=== PATIENT | male | born 1995 | race Caucasian/White ===

== ENCOUNTER 2020-04-28 06:27 | Emergency (ER) | payer BC ==
--- NOTE | 2020-04-28 07:21 | EDM.PDOC ---
ED HPI GENERAL MEDICAL PROBLEM - General Chief Complaint: Skin Complaint Stated Complaint: RT LEG POSSIBLE INFECTION Time Seen by Provider: 04/28/20 07:10 - History of Present Illness INITIAL COMMENTS - FREE TEXT/NARRATIVE: Patient presents with a painful draining bump on his right inner thigh. Patient reports that he noted a "zit" in that area 3 days ago he popped it and then over the last 48 hours has noted worsening pain and swelling and then today he felt catch when he was putting on his boxers and it started to drain pus. No fevers no chills moderate pain that worsens with direct pressure. sore to R posterior thigh Pain Score (Numeric/FACES): 3 - Related Data Allergies Allergy/AdvReac Type Severity Reaction Status Date / Time No Known Allergies Allergy Verified 04/28/20 07:04 Home Meds: Home Meds Ibuprofen [Motrin] 400 mg PO Q8H PRN 04/13/15 [History] Sulfamethoxazole/Trimethoprim [Bactrim Ds Tablet] 1 each PO BID 7 Days #14 tablet 04/28/20 [Rx] cephALEXin [Keflex] 500 mg PO Q6HR 7 Days #28 cap 04/28/20 [Rx] Past Medical History - Past Health History Medical/Surgical History: Denies Medical/Surgical History Other Immunologic History: [place] - Infectious Disease History Infectious Disease History: Reports: Mononucleosis Social & Family History - Family History Family Medical History: Noncontributory - Tobacco Use Tobacco Use Status *Q: Never Tobacco User - Caffeine Use Caffeine Use: Reports: Soda - Recreational Drug Use Recreational Drug Use: No ED ROS GENERAL - Review of Systems Review Of Systems: See Below Free Text/Narrative/Comment: General: No fever. Skin: Per HPI Respiratory: No shortness of breath. Gastrointestinal: No nausea, vomiting or abdominal pain. Musculoskeletal: No myalgias/arthralgias. Neurologic: No headache. ED EXAM, SKIN/RASH Exam: See Below Text/Narrative:: General Appearance: No acute distress, appears comfortable Skin: 2 cm area of induration with overlying and surrounding erythema measuring approximately 4 cm at the center of the lesion there is a spontaneously draining abscess with some purulent drainage HEENT: Normocephalic/atraumatic, sclera anicteric, mucous membranes moist Neck: Normal range of motion Back: Normal Musculoskeletal: No edema or tenderness Neurologic: Awake, alert, no obvious deficits, moving all extremities Psychiatric: Appropriate, cooperative Course - Vital Signs Last Recorded V/S: Last Vital Signs Temp 99.8 F 04/28/20 07:01 Pulse 96 04/28/20 07:01 Resp 16 04/28/20 07:01 BP 134/74 04/28/20 07:01 Pulse Ox 95 04/28/20 07:01 Departure - Departure Time of Disposition: 07:17 Disposition: Home, Self-Care 01 Condition: Good Clinical Impression: Cellulitis and abscess of right lower extremity - Discharge Information *PRESCRIPTION DRUG MONITORING PROGRAM REVIEWED*: Not Applicable *COPY OF PRESCRIPTION DRUG MONITORING REPORT IN PATIENT ASTRID: Not Applicable Prescriptions: Sulfamethoxazole/Trimethoprim [Bactrim Ds Tablet] 1 each PO BID 7 Days #14 tablet cephALEXin [Keflex] 500 mg PO Q6HR 7 Days #28 cap Instructions: Cellulitis, Adult Referrals: [facility] [Outside] Forms: ED Department Discharge Additional Instructions: The abscess area will likely continue to drain for the next few days. However you should experience a rapid improvement in the redness and the pain. Please be sure to finish the entire antibiotic course. If you have worsening swelling worsening pain spreading redness or fevers please return to the emergency room right away. The following information is given to patients seen in the emergency department who are being discharged to home. This information is to outline your options fo r follow-up care. We provide all patients seen in our emergency department with a follow-up referral. The need for follow-up, as well as the timing and circumstances, are variable depending upon the specifics of your emergency department visit. If you don't have a primary care physician on staff, we will provide you with a referral. We always advise you to contact your personal physician following an emergency department visit to inform them of the circumstance of the visit and for follow-up with them and/or the need for any referrals to a consulting specialist. The emergency department will also refer you to a specialist when appropriate. This referral assures that you have the opportunity for follow-up care with a specialist. All of these measure are taken in an effort to provide you with optimal care, which includes your follow-up. Under all circumstances we always encourage you to contact your private physician who remains a resource for coordinating your care. When calling for follow-up care, please make the office aware that this follow-up is from your recent emergency room visit. If for any reason you are refused follow-up, please contact the [facility] Emergency Department at and asked to speak to the emergency department charge nurse. Sepsis Event Note (ED) - Evaluation Sepsis Screening Result: No Definite Risk - Focused Exam Vital Signs: Vital Signs Temp Pulse Resp BP Pulse Ox 04/28/20 07:01 99.8 F 96 16 134/74 95 - Assessment/Plan Assessment:: 25-year-old male with no signs or symptoms of systemic infection presenting with small area of cellulitis associated with a spontaneously draining abscess. Abscess is clearly spontaneously draining given that formal I&D not indicated at this time but given significant overlying erythema consistent with cellulitis will prescribe 1 week of Bactrim Keflex. Strict return precautions discussed and understood regarding returning for worsening pain worsening swelling fevers etc.
[2020-04-28 07:47] VITALS: BP 136/70; PULSE 95
== END 2020-04-28 07:35 | disposition home or self-care (01) ==
LOC: MW.ED 06:27
DX: L03.115 Cellulitis of right lower limb (principal); L02.415 Cutaneous abscess of right lower limb
CPT/HCPCS: 99282

== ENCOUNTER 2020-08-17 10:43 | Emergency (ER) | payer BC ==
[2020-08-17] MEDS ORDERED: Sodium Chloride 0.9% 1,000 ML IV ONE (11:38)
[2020-08-17] MEDS ORDERED: cefTRIAXone 1 GM in Premix Bag 1 BAG IV ONE (11:42)
[2020-08-17] MEDS ORDERED: Vancomycin 2 GM in Sodium Chloride 0.9% 500 ML IV SCH (12:00)
[2020-08-17] MEDS ORDERED: Vancomycin/Water for INJ (PEG) 2 GM in Premix Bag 1 BAG IV SCH (12:00)
[2020-08-17 12:05] LABS: BLOOD UREA NITROGEN,BUN 15 mg/dL (7.0-18.0); CHLORIDE,CL 104 mmol/L (98-107); GLUCOSE RANDOM 81 mg/dL (74-106); POTASSIUM,K 3.5 mmol/L (3.5-5.1); SODIUM,NA 142 mmol/L (136-148)
[2020-08-17] MEDS ORDERED: Iopamidol 755 MG/ML 500 ML Multipack Bottle IVPUSH ONE (12:35)
--- NOTE | 2020-08-17 12:58 | CT ---
INDICATION: Suprapubic infection, abscess, or cellulitis. TECHNIQUE: CT abdomen and pelvis acquired with 100 cc Isovue 370 IV contrast. COMPARISON: None. FINDINGS: Lower chest: Unremarkable. Liver: Unremarkable. Normal in size and attenuation. No masses. Gallbladder and bile ducts: Unremarkable. No stones or inflammation. No biliary dilatation. Pancreas: Unremarkable. No mass or inflammation. Spleen: Unremarkable. Normal in size. No masses. Adrenal glands: Unremarkable. No nodules. Kidneys: Unremarkable. No masses, stones, or hydronephrosis. GI tract: Unremarkable. Normal in caliber. No sign of mass or inflammation. Normal appendix. Vasculature: Unremarkable. Mesenteric arteries are patent. Lymph nodes: No lymphadenopathy. Omentum/Peritoneum/Abdominal Wall: In the superficial anterior soft tissues of the pelvis is skin thickening and subcutaneous edema consistent with cellulitis. No fluid collection to suggest abscess. No intra-abdominal inflammation, fluid collection or free air. Pelvis: Unremarkable. Bones: Unremarkable for age. IMPRESSION: Cellulitis is present in the anterior pelvic wall. No abscess. Remainder of the exam is unremarkable. Please note that all CT scans at this facility use dose modulation, iterative reconstruction, and/or weight-based dosing when appropriate to reduce radiation dose to as low as reasonably achievable. Dictated by Ryan Boyce MD @ Aug 17 2020 12:49PM Signed by Dr. Ryan Boyce @ Aug 17 2020 12:55PM
[2020-08-17] MEDS ORDERED: diphenhydrAMINE 50 MG/ML SDV IVPUSH ONE (13:32)
--- NOTE | 2020-08-17 14:09 | EDM.PDOC ---
ED HPI GENERAL MEDICAL PROBLEM - General Chief Complaint: Skin Complaint Stated Complaint: INFECTION Time Seen by Provider: 08/17/20 10:45 Source of Information: Reports: Patient History Limitations: Reports: No Limitations - History of Present Illness INITIAL COMMENTS - FREE TEXT/NARRATIVE: HISTORY AND PHYSICAL: History of present illness: Patient is a 25-year-old male who presents emergency room today with concern of a skin infection that started 2 to 3 days ago. Patient states that it started off as a "pimple "and states that he had popped it and then has had increasing redness and pain surrounding the area that he had popped. Patient states that he has had this prior on his leg but states that this is more painful due to the location. Patient states this is on his lower abdomen, just superior to his penis but states that it does not radiate into his penis or his testicles. Patient denies any trauma or injury, penile drainage, scrotal tenderness, or testicular pain. States he has not taken anything for his symptoms. Patient denies fever, chills, chest pain, shortness of breath, or cough. Denies headache, neck stiff ness, change in vision, syncope, or near syncope. Denies nausea, vomiting, abdominal pain, diarrhea, constipation, or dysuria. Has not noted any blood in urine or stool. Patient has been eating and drinking appropriately. Review of systems: As per history of present illness and below otherwise all systems reviewed and negative. Past medical history: As per history of present illness and as reviewed below otherwise noncontributory. Surgical history: As per history of present illness and as reviewed below otherwise noncontributory. Social history: See social history for further information Family history: As per history of present illness and as reviewed below otherwise noncontributory. Physical exam: General: Patient is alert, oriented, and in no acute distress. Patient sitting comfortably on exam table. Vitals stable and reviewed by me HEENT: Atraumatic, normocephalic, pupils equal and reactive bilaterally, negative for conjunctival pallor or scleral icterus, mucous membranes moist, TMs normal bilaterally, throat clear, neck supple, nontender, trachea midline. No drooling or trismus noted. No meningeal signs. No hot potato voice noted. Lungs: Clear to auscultation, breath sounds equal bilaterally, chest nontender. Heart: S1S2, regular rate and rhythm without overt murmur Abdomen: See genitourinary. Otherise, Soft, nondistended, nontender. Negative for masses or hepatosplenomegaly. Negative for costovertebral tenderness. Pelvis: Stable nontender. Genitourinary: Drug And Alcohol Counselor at beside MICHAEL Feliz/Anais Salcedo. There is a 5 cm x 4 cm area of induration without fluctuance with surrounding cellulitis just superior to the penile shaft. This does not extend down into the testicles or the penile shaft. No penile drainage noted. No testicular pain. The area of cellulitis was outlined with a surgical marker. Rectal: Deferred. Skin: Intact, warm, dry. No lesions or rashes noted. Extremities: Atraumatic, negative for cords or calf pain. Neurovascular unremarkable. Neuro: Awake, alert, oriented. Cranial nerves II through XII unremarkable. Cerebellum unremarkable. Motor and sensory unremarkable throughout. Exam nonfocal. Notes: Dr. Palafox verbally involved in patient care. Upon reexamination of patient, he really means well on exam, and in no acute distress. Vitals remained stable throughout stay in ED. Strict return precautions thoroughly discussed with patient. Discussed importance for follow- up with a primary care provider. Voices understanding and is agreeable to plan of care. Denies any further questions or concerns at this time. Diagnostics: CBC, CMP, UA, Lactate, Blood cultures x 2 Therapeutics: NS, Vancomycin IV Prescription: Doxycycline Impression: Cellulitis, pelvic wall Plan: 1. Take medication as prescribed. You can alternate ibuprofen and Tylenol as directed for pain and discomfort. 2. Continue to monitor for signs of spreading infection versus improving infection as discussed. Return to the ED as needed and as discussed. 3. Follow-up with your primary care provider as discussed. Definitive disposition and diagnosis as appropriate pending reevaluation and review of above. pubic Pain Score (Numeric/FACES): 7 - Related Data Allergies Allergy/AdvReac Type Severity Reaction Status Date / Time No Known Allergies Allergy Verified 08/17/20 11:14 Home Meds: Home Meds Doxycycline [Vibramycin] 100 mg PO BID 14 Days #28 cap 08/17/20 [Rx] Past Medical History - Past Health History Medical/Surgical History: Denies Medical/Surgical History Other Immunologic History: [place] - Infectious Disease History Infectious Disease History: Reports: None, Mononucleosis Social & Family History - Family History Family Medical History: No Pertinent Family History - Tobacco Use Tobacco Use Status *Q: Never Tobacco User - Caffeine Use Caffeine Use: Reports: Soda - Recreational Drug Use Recreational Drug Use: Yes Recreational Drug Type: Reports: Marijuana/Hashish Recreational Drug Use Frequency: Socially ED ROS GENERAL - Review of Systems Review Of Systems: Comprehensive ROS is negative, except as noted in HPI. ED EXAM, SKIN/RASH Exam: See Below (see dictation) Course - Vital Signs Last Recorded V/S: Last Vital Signs Temp 98.8 F 08/17/20 13:23 Pulse 90 08/17/20 13:23 Resp 18 08/17/20 13:23 BP 141/85 H 08/17/20 13:23 Pulse Ox 99 08/17/20 13:23 - Orders/Labs/Meds Orders: Active Orders 24 hr Category Date Time Status CULTURE BLOOD [BC] Stat Lab 08/17/20 11:45 Received CULTURE BLOOD [BC] Stat Lab 08/17/20 11:53 Received Vancomycin/Water for INJ (PEG) [Vancomycin in Water 2 Med 08/17/20 12:00 Active GM/400 ML] 2 gm Premix Bag 1 bag IV Q24H Blood Culture x2 Reflex Set [OM.PC] Stat Oth 08/17/20 11:41 Ordered Medication Orders Vancomycin HCl 2 gm/ Premix 400 mls @ 200 mls/hr IV Q24H PAM Last Admin: 08/17/20 12:04 Dose: 200 mls/hr Documented by: VASU Labs: Laboratory Tests 08/17/20 08/17/20 08/17/20 Range/Units 11:35 11:35 11:53 WBC 10.83 (4.0-11.0) K/uL RBC 5.02 (4.50-5.90) M/uL Hgb 16.1 (13.0-17.0) g/dL Hct 45.3 (38.0-50.0) % MCV 90.2 (80.0-98.0) fL MCH 32.1 H (27.0-32.0) pg MCHC 35.5 (31.0-37.0) g/dL RDW Std Deviation 41.1 (28.0-62.0) fl RDW Coeff of [place] 13 (11.0-15.0) % Plt Count 178 (150-400) K/uL MPV 9.30 (7.40-12.00) fL Neut % (Auto) 67.3 (48.0-80.0) % Lymph % (Auto) 22.3 (16.0-40.0) % [place] % (Auto) 9.0 (0.0-15.0) % Eos % (Auto) 1.1 (0.0-7.0) % Baso % (Auto) 0.3 (0.0-1.5) % Neut # (Auto) 7.3 H (1.4-5.7) K/uL Lymph # (Auto) 2.4 (0.6-2.4) K/uL [place] # (Auto) 1.0 H (0.0-0.8) K/uL Eos # (Auto) 0.1 (0.0-0.7) K/uL Baso # (Auto) 0.0 (0.0-0.1) K/uL Nucleated RBC % 0.0 /100WBC Nucleated RBCs # 0 K/uL Lactate 0.7 (0.20-2.00) mmol/L Sodium 142 (136-148) mmol/L Potassium 3.5 (3.5-5.1) mmol/L Chloride 104 (98-107) mmol/L Carbon Dioxide 28.0 (21.0-32.0) mmol/L BUN 15 (7.0-18.0) mg/dL Creatinine 1.1 (0.8-1.3) mg/dL Est Cr Clr Drug Dosing 117.28 mL/min Estimated GFR (MDRD) > 60.0 ml/min Glucose 81 (74-106) mg/dL Calcium 8.5 (8.5-10.1) mg/dL Total Bilirubin 0.6 (0.2-1.0) mg/dL AST 14 L (15-37) IU/L ALT 43 (14-63) IU/L Alkaline Phosphatase 72 (46-116) U/L Total Protein 7.9 (6.4-8.2) g/dL Albumin 3.8 (3.4-5.0) g/dL Globulin 4.1 H (2.6-4.0) g/dL Albumin/Globulin Ratio 0.9 (0.9-1.6) Urine Color Urine Appearance Urine pH (5.0-8.0) Ur Specific [place] (1.001-1.035) Urine Protein (NEGATIVE) mg/dL Urine Glucose (UA) (NEGATIVE) mg/dL Urine Ketones (NEGATIVE) mg/dL Urine Occult Blood (NEGATIVE) Urine Nitrite (NEGATIVE) Urine Bilirubin (NEGATIVE) Urine Urobilinogen (<2.0) EU/dL Ur Leukocyte Esterase (NEGATIVE) Urine RBC (0-2/HPF) Urine WBC (0-5/HPF) Ur Epithelial Cells (NONE-FEW) Amorphous Sediment (NEGATIVE) Urine Bacteria (NEGATIVE) Urine Mucus (NONE-MOD) 08/17/20 Range/Units 13:00 WBC (4.0-11.0) K/uL RBC (4.50-5.90) M/uL Hgb (13.0-17.0) g/dL Hct (38.0-50.0) % MCV (80.0-98.0) fL MCH (27.0-32.0) pg MCHC (31.0-37.0) g/dL RDW Std Deviation (28.0-62.0) fl RDW Coeff of [place] (11.0-15.0) % Plt Count (150-400) K/uL MPV (7.40-12.00) fL Neut % (Auto) (48.0-80.0) % Lymph % (Auto) (16.0-40.0) % [place] % (Auto) (0.0-15.0) % Eos % (Auto) (0.0-7.0) % Baso % (Auto) (0.0-1.5) % Neut # (Auto) (1.4-5.7) K/uL Lymph # (Auto) (0.6-2.4) K/uL [place] # (Auto) (0.0-0.8) K/uL Eos # (Auto) (0.0-0.7) K/uL Baso # (Auto) (0.0-0.1) K/uL Nucleated RBC % /100WBC Nucleated RBCs # K/uL Lactate (0.20-2.00) mmol/L Sodium (136-148) mmol/L Potassium (3.5-5.1) mmol/L Chloride (98-107) mmol/L Carbon Dioxide (21.0-32.0) mmol/L BUN (7.0-18.0) mg/dL Creatinine (0.8-1.3) mg/dL Est Cr Clr Drug Dosing mL/min Estimated GFR (MDRD) ml/min Glucose (74-106) mg/dL Calcium (8.5-10.1) mg/dL Total Bilirubin (0.2-1.0) mg/dL AST (15-37) IU/L ALT (14-63) IU/L Alkaline Phosphatase (46-116) U/L Total Protein (6.4-8.2) g/dL Albumin (3.4-5.0) g/dL Globulin (2.6-4.0) g/dL Albumin/Globulin Ratio (0.9-1.6) Urine Color YELLOW Urine Appearance CLEAR Urine pH 5.5 (5.0-8.0) Ur Specific [place] 1.020 (1.001-1.035) Urine Protein NEGATIVE (NEGATIVE) mg/dL Urine Glucose (UA) NEGATIVE (NEGATIVE) mg/dL Urine Ketones NEGATIVE (NEGATIVE) mg/dL Urine Occult Blood TRACE-INTACT H (NEGATIVE) Urine Nitrite NEGATIVE (NEGATIVE) Urine Bilirubin NEGATIVE (NEGATIVE) Urine Urobilinogen 0.2 (<2.0) EU/dL Ur Leukocyte Esterase NEGATIVE (NEGATIVE) Urine RBC 0-3 (0-2/HPF) Urine WBC 1-3 (0-5/HPF) Ur Epithelial Cells OCCASIONAL (NONE-FEW) Amorphous Sediment FEW (NEGATIVE) Urine Bacteria FEW (NEGATIVE) Urine Mucus FEW (NONE-MOD) Meds: Medications Generic Name Dose Route Start Last Admin Trade Name Freq PRN Reason Stop Dose Admin Vancomycin HCl 2 gm/ Premix 400 mls @ 200 mls/hr 08/17/20 12:00 08/17/20 12:04 IV 200 mls/hr Q24H PAM Administration Discontinued Medications Generic Name Dose Route Start Last Admin Trade Name Freq PRN Reason Stop Dose Admin Diphenhydramine HCl 25 mg 08/17/20 13:32 08/17/20 13:38 Benadryl IVPUSH 08/17/20 13:33 25 mg ONETIME ONE Administration Sodium Chloride 1,000 mls @ 999 mls/hr 08/17/20 11:38 08/17/20 12:04 Normal Saline IV 08/17/20 12:38 999 mls/hr BOLUS ONE Administration Ceftriaxone Sodium/Dextrose 1 50 mls @ 100 mls/hr 08/17/20 11:42 08/17/20 12:08 gm/ Premix IV 08/17/20 12:11 Not Given ONETIME ONE Iopamidol 100 ml 08/17/20 12:35 08/17/20 12:36 Isovue Multipack-370 (76%) IVPUSH 08/17/20 12:36 100 ml ONETIME ONE Administration Departure - Departure Time of Disposition: 14:07 Disposition: Home, Self-Care 01 Clinical Impression: Cellulitis Qualifiers: Site of cellulitis: trunk Site of cellulitis of trunk: abdominal wall Qualified Code(s): L03.311 - Cellulitis of abdominal wall - Discharge Information Prescriptions: Doxycycline [Vibramycin] 100 mg PO BID 14 Days #28 cap Referrals: PCP,None [Primary Care Provider] - Forms: ED Department Discharge Additional Instructions: The following information is given to patients seen in the emergency department who are being discharged to home. This information is to outline your options for follow-up care. We provide all patients seen in our emergency department with a follow-up referral. The need for follow-up, as well as the timing and circumstances, are variable depending upon the specifics of your emergency department visit. If you don't have a primary care physician on staff, we will provide you with a referral. We always advise you to contact your personal physician following an emergency department visit to inform them of the circumstance of the visit and for follow-up with them and/or the need for any referrals to a consulting specialist. The emergency department will also refer you to a specialist when appropriate. This referral assures that you have the opportunity for follow-up care with a specialist. All of these measure are taken in an effort to provide you with optimal care, which includes your follow-up. Under all circumstances we always encourage you to contact your private physician who remains a resource for coordinating your care. When calling for follow-up care, please make the office aware that this follow-up is from your recent emergency room visit. If for any reason you are refused follow-up, please contact the [facility] Emergency Department at and asked to speak to the emergency department charge nurse. [facility] [address] [place] [address] [facility] [address] [place] [address] 1. Take medication as prescribed. You can alternate ibuprofen and Tylenol as directed for pain and discomfort. 2. Continue to monitor for signs of spreading infection versus improving infection as discussed. Return to the ED as needed and as discussed. 3. Follow-up with your primary care provider as discussed. Sepsis Event Note (ED) - Evaluation Sepsis Screening Result: No Definite Risk - Focused Exam Vital Signs: Vital Signs Temp Pulse Resp BP Pulse Ox 08/17/20 13:23 98.8 F 90 18 141/85 H 99 08/17/20 11:14 97.8 F 93 16 136/77 98 - My Orders Last 24 Hours: My Active Orders 08/17/20 11:41 Blood Culture x2 Reflex Set [OM.PC] Stat 08/17/20 11:45 CULTURE BLOOD [BC] Stat 08/17/20 11:53 CULTURE BLOOD [BC] Stat 08/17/20 12:00 Vancomycin/Water for INJ (PEG) [Vancomycin in Water 2 GM/400 ML] 2 gm Premix Bag 1 bag IV Q24H - Assessment/Plan Last 24 Hours: My Active Orders 08/17/20 11:41 Blood Culture x2 Reflex Set [OM.PC] Stat 08/17/20 11:45 CULTURE BLOOD [BC] Stat 08/17/20 11:53 CULTURE BLOOD [BC] Stat 08/17/20 12:00 Vancomycin/Water for INJ (PEG) [Vancomycin in Water 2 GM/400 ML] 2 gm Premix Bag 1 bag IV Q24H
[2020-08-17 15:26] VITALS: BP 146/88; PULSE 87
== END 2020-08-17 15:25 | disposition home or self-care (01) ==
LOC: MW.ED 10:43
DX: L03.311 Cellulitis of abdominal wall (principal)
CPT/HCPCS: 36415; 74177; 80053; 81001; 83605; 85025; 87040; 96365; 96366; 96375; 99284; J1200; J3370; J7030; Q9967; 99283

== ENCOUNTER 2020-09-29 19:43 | Emergency (ER) | payer OTHER, BC ==
[2020-09-29] MEDS ORDERED: Ketorolac 60 MG/2 ML SDV IM ONE (19:56)
[2020-09-29 20:00] VITALS: BP 140/92; PULSE 83
--- NOTE | 2020-09-29 21:39 | CT ---
INDICATION: Headache after trauma TECHNIQUE: CT head without contrast. COMPARISON: None. FINDINGS: CSF spaces: Within normal limits for age. Brain parenchyma: The young-white differentiation is normal. No sign of mass, hemorrhage, or midline shift. Skull base and calvarium: The visualized paranasal sinuses and mastoid air cells demonstrate no acute or significant findings. The visualized orbits are grossly unremarkable. No skull fractures. IMPRESSION: Unremarkable noncontrast head CT. Please note that all CT scans at this facility use dose modulation, iterative reconstruction, and/or weight-based dosing when appropriate to reduce radiation dose to as low as reasonably achievable. Dictated by Catalino Mena MD @ Sep 29 2020 9:33PM Signed by Dr. Catalino Mena @ Sep 29 2020 9:38PM
--- NOTE | 2020-09-29 21:43 | CT ---
INDICATION: Neck pain after trauma TECHNIQUE: CT cervical spine without contrast. COMPARISON: None FINDINGS: Vertebrae: Alignment is normal. There are no fractures or suspicious bony lesions. Discs and facet joints: Disc spaces and facets are within normal limits. Extraspinal findings: Prevertebral soft tissues, visualized airway, and visualized lungs are unremarkable. IMPRESSION: Unremarkable cervical spine CT. Please note that all CT scans at this facility use dose modulation, iterative reconstruction, and/or weight-based dosing when appropriate to reduce radiation dose to as low as reasonably achievable. Dictated by Catalino Mena MD @ Sep 29 2020 9:32PM Signed by Dr. Catalino Mena @ Sep 29 2020 9:41PM
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
== END 2020-09-29 22:15 | disposition home or self-care (01) ==
LOC: MW.ED 19:43
DX: S09.90XA Unspecified injury of head, initial encounter (principal); S16.1XXA Strain of muscle, fascia and tendon at neck level, initial encounter; M25.521 Pain in right elbow; M25.522 Pain in left elbow; M25.531 Pain in right wrist; M25.532 Pain in left wrist; R68.84 Jaw pain; V89.2XXA Person injured in unspecified motor-vehicle accident, traffic, initial encounter
CPT/HCPCS: 70450; 72125; 96372; 99284; J1885; 99283

== ENCOUNTER 2021-01-06 06:02 | Emergency (ER) | payer BC ==
[2021-01-06] MEDS ORDERED: Sodium Chloride 0.9% 10 ML Syringe FLUSH PRN (06:28)
[2021-01-06] MEDS ORDERED: Sodium Chloride 0.9% 2.5 ML Syringe FLUSH PRN (06:28)
--- NOTE | 2021-01-06 06:28 | EDM.PDOC ---
<John Woodson - Last Filed: 01/06/21 06:21> ED HPI GENERAL MEDICAL PROBLEM - General Chief Complaint: General Stated Complaint: NECK PAIN, SHAKY, LOSS OF SENSE OF TASTE Time Seen by Provider: 01/06/21 06:21 - History of Present Illness INITIAL COMMENTS - FREE TEXT/NARRATIVE: History of present illness: [] Last week his doctor switched him from Ritalin to Adderall for his ADHD. He started taking the new medicine 5 days ago. He also has been working in extreme heat and replacing with essentially water only. The patient has started getting tingling about the face had numbness about the face feeling like it is puffy and loss of taste. He has had intermittent loss of appetite over the last 2 days. He continues to feel awkward and little bit off balance today. He is for the most part enjoyed good health. He vapes but does not smoke cigarettes and does not drink. Review of systems: As per history of present illness and below otherwise all systems reviewed and negative. Past medical history: As per history of present illness and as reviewed below otherwise noncontributory. Surgical history: As per history of present illness and as reviewed below otherwise noncontributory. Social history: No reported history of drug or alcohol abuse. Family history: As per history of present illness and as reviewed below otherwise noncontributory. Physical exam: Constitutional - well developed, well-nourished and in no acute distress HEENT - normocephalic, no evidence of trauma - external nose and mouth normal - no mass in neck and no JVD - mucosae moist EYES - full EOM, PERRL, no icterus - no evidence of inflammation, injection, or drainage Respiratory - no respiratory distress, equal bilateral expansion, lungs clear to auscultation and no abnormal lung sounds Cardiovascular - Regular Rhythm with S1 and S2 appreciated and no murmur, gallop or rub. GI - abdomen soft without distension or organomegaly - normal bowel sounds - no guard or rebound Musculoskeletal no gross deformity of long bones or joints - no tenderness, swelling or edema Neurologic -my brief customary neurologic exam is normal. Alert and oriented times four - CN II-XII grossly intact - motor sensory and coordination symmetrically normal Psychiatric - appropriate mood and affect with normal thought content Hematologic - No petechiae or purpura - mucosa appropriate color and sclera not pale - normal nail bed color and refill Integument - no rash or evidence of trauma - normal turgor Diagnostics: [] Therapeutics: [] Impression: [] Plan: [] Definitive disposition and diagnosis as appropriate pending reevaluation and review of above. - Related Data Allergies Allergy/AdvReac Type Severity Reaction Status Date / Time No Known Allergies Allergy Verified 01/06/21 06:09 Home Meds: Home Meds Cyclobenzaprine [Flexeril] 10 mg PO TID PRN #20 tab 09/29/20 [Rx] Ibuprofen 600 mg PO Q6HR PRN #30 tablet 09/29/20 [Rx] Methylphenidate HCl [Ritalin] 20 mg PO DAILY 09/29/20 [History] Past Medical History - Past Health History Medical/Surgical History: Denies Medical/Surgical History Other Immunologic History: [place] - Infectious Disease History Infectious Disease History: Reports: None, Mononucleosis Social & Family History - Family History Family Medical History: No Pertinent Family History - Tobacco Use Tobacco Use Status *Q: Never Tobacco User - Caffeine Use Caffeine Use: Reports: Soda - Recreational Drug Use Recreational Drug Use: No ED ROS GENERAL - Review of Systems Review Of Systems: Comprehensive ROS is negative, except as noted in HPI. ED EXAM, GENERAL - Physical Exam Exam: See Below Free Text/Narrative:: My physical exam is in the HPI Departure - Departure Disposition: Home, Self-Care 01 Clinical Impression: Gottlieb palsy - Discharge Information Instructions: Gottlieb Palsy, Adult Referrals: PCP,None [Primary Care Provider] - Forms: ED Department Discharge Additional Instructions: The following information is given to patients seen in the emergency department who are being discharged to home. This information is to outline your options for follow-up care. We provide all patients seen in our emergency department with a follow-up referral. The need for follow-up, as well as the timing and circumstances, are variable depending upon the specifics of your emergency department visit. If you don't have a primary care physician on staff, we will provide you with a referral. We always advise you to contact your personal physician following an emergency department visit to inform them of the circumstance of the visit and for follow-up with them and/or the need for any referrals to a consulting specialist. The emergency department will also refer you to a specialist when appropriate. This referral assures that you have the opportunity for follow-up care with a specialist. All of these measure are taken in an effort to provide you with optimal care, which includes your follow-up. Under all circumstances we always encourage you to contact your private physician who remains a resource for coordinating your care. When calling for follow-up care, please make the office aware that this follow-up is from your recent emergency room visit. If for any reason you are refused follow-up, please contact the [facility] Emergency Department at and asked to speak to the emergency department charge nurse. Please follow up with your primary care physician. If you do not have a primary care physician, see below: [facility] [address] [place] [id number] My [facility] [address] [place] [address] You were seen today for numbness to the left side of your face. On exam it looks like you have what is called a Gottlieb's palsy. We gave you a dose of steroids that she should continue to take for the next 6 days. The numbness in the facial droop should improve. Please return back to the ED if you have any other concerning signs or symptoms. As we spoke about please when sleeping put some tape over your eyelids keep it shut at night cellulitis not become dried out since he cannot close completely. Sepsis Event Note (ED) - Evaluation Sepsis Screening Result: No Definite Risk <Eagle Bower - Last Filed: 01/06/21 08:21> Course - Vital Signs Last Recorded V/S: Last Vital Signs Temp 98.2 F 01/06/21 08:16 Pulse 68 01/06/21 08:16 Resp 18 01/06/21 08:16 BP 138/94 H 01/06/21 08:16 Pulse Ox 97 01/06/21 08:16 - Orders/Labs/Meds Orders: Active Orders 24 hr Category Date Time Status Sodium Chloride 0.9% [Saline Flush] Med 01/06/21 06:28 Active 10 ml FLUSH ASDIRECTED PRN Sodium Chloride 0.9% [Saline Flush] Med 01/06/21 06:28 Active 2.5 ml FLUSH ASDIRECTED PRN Saline Lock Insert [OM.PC] Stat Oth 07/06/21 06:28 Ordered Medication Orders Sodium Chloride (Sodium Chloride 0.9% 10 Ml Syringe) 10 ml FLUSH ASDIRECTED PRN PRN Reason: Keep Vein Open Last Admin: 01/06/21 07:58 Dose: 10 ml Documented by: ADE Sodium Chloride (Sodium Chloride 0.9% 2.5 Ml Syringe) 2.5 ml FLUSH ASDIRECTED PRN PRN Reason: Keep Vein Open Last Admin: 01/06/21 07:58 Dose: 2.5 ml Documented by: ADE Labs: Laboratory Tests 01/06/21 01/06/21 01/06/21 Range/Units 06:30 06:32 06:32 WBC 4.99 (4.0-11.0) K/uL RBC 4.82 (4.50-5.90) M/uL Hgb 15.6 (13.0-17.0) g/dL Hct 43.2 (38.0-50.0) % MCV 89.6 (80.0-98.0) fL MCH 32.4 H (27.0-32.0) pg MCHC 36.1 (31.0-37.0) g/dL RDW Std Deviation 41.0 (28.0-62.0) fl RDW Coeff of [place] 13 (11.0-15.0) % Plt Count 189 (150-400) K/uL MPV 9.20 (7.40-12.00) fL Neut % (Auto) 36.9 L (48.0-80.0) % Lymph % (Auto) 48.5 H (16.0-40.0) % [place] % (Auto) 9.8 (0.0-15.0) % Eos % (Auto) 3.8 (0.0-7.0) % Baso % (Auto) 1.0 (0.0-1.5) % Neut # (Auto) 1.8 (1.4-5.7) K/uL Lymph # (Auto) 2.4 (0.6-2.4) K/uL [place] # (Auto) 0.5 (0.0-0.8) K/uL Eos # (Auto) 0.2 (0.0-0.7) K/uL Baso # (Auto) 0.1 (0.0-0.1) K/uL Nucleated RBC % 0.0 /100WBC Nucleated RBCs # 0 K/uL Sodium 143 (136-148) mmol/L Potassium 3.8 (3.5-5.1) mmol/L Chloride 106 (98-107) mmol/L Carbon Dioxide 30.1 (21.0-32.0) mmol/L BUN 28 H (7.0-18.0) mg/dL Creatinine 1.2 (0.8-1.3) mg/dL Est Cr Clr Drug Dosing 107.51 mL/min Estimated GFR (MDRD) > 60.0 ml/min Glucose 100 (74-106) mg/dL Calcium 8.7 (8.5-10.1) mg/dL Magnesium 2.2 (1.8-2.4) mg/dL Total Bilirubin 0.4 (0.2-1.0) mg/dL AST 15 (15-37) IU/L ALT 34 (14-63) IU/L Alkaline Phosphatase 62 (46-116) U/L Total Protein 7.3 (6.4-8.2) g/dL Albumin 3.9 (3.4-5.0) g/dL Globulin 3.4 (2.6-4.0) g/dL Albumin/Globulin Ratio 1.1 (0.9-1.6) SARS-CoV-2 RNA ([place]) NEGATIVE (NEGATIVE) Meds: Medications Generic Name Dose Route Start Last Admin Trade Name Freq PRN Reason Stop Dose Admin Sodium Chloride 10 ml 01/06/21 06:28 01/06/21 07:58 Sodium Chloride 0.9% 10 Ml Syringe FLUSH 10 ml ASDIRECTED PRN Administration Keep Vein Open Sodium Chloride 2.5 ml 01/06/21 06:28 01/06/21 07:58 Sodium Chloride 0.9% 2.5 Ml Syringe FLUSH 2.5 ml ASDIRECTED PRN Administration Keep Vein Open Discontinued Medications Generic Name Dose Route Start Last Admin Trade Name Freq PRN Reason Stop Dose Admin Prednisone 60 mg 01/06/21 07:29 01/06/21 07:58 Prednisone 20 Mg Tab PO 01/06/21 07:30 60 mg ONETIME ONE Administration Departure - Departure Time of Disposition: 08:20 Condition: Good - Discharge Information *PRESCRIPTION DRUG MONITORING PROGRAM REVIEWED*: Not Applicable *COPY OF PRESCRIPTION DRUG MONITORING REPORT IN PATIENT ASTRID: Not Applicable Sepsis Event Note (ED) - Focused Exam Vital Signs: Vital Signs Temp Pulse Resp BP Pulse Ox 01/06/21 08:16 98.2 F 68 18 138/94 H 97 01/06/21 07:15 98.6 F 88 20 122/72 98 01/06/21 06:09 97.3 F 69 17 139/80 97
[2021-01-06 07:02] LABS: BLOOD UREA NITROGEN,BUN 28 mg/dL (7.0-18.0); CARBON DIOXIDE,CO2 30.1 mmol/L (21.0-32.0); CHLORIDE,CL 106 mmol/L (98-107); GLUCOSE RANDOM 100 mg/dL (74-106); POTASSIUM,K 3.8 mmol/L (3.5-5.1); SODIUM,NA 143 mmol/L (136-148)
[2021-01-06] MEDS ORDERED: predniSONE 20 MG Tab PO ONE (07:29)
--- NOTE | 2021-01-06 08:09 | CT ---
INDICATION: Left-sided facial numbness. Facial drooping. TECHNIQUE: CT head without contrast. COMPARISON: None. FINDINGS: CSF spaces: Within normal limits for age. Brain parenchyma and extra-axial spaces: The young-white differentiation is normal. No sign of mass, hemorrhage, or midline shift. No extra-axial fluid collection. Skull base and calvarium: The visualized paranasal sinuses and mastoid air cells demonstrate no acute or significant findings. The visualized orbits are grossly unremarkable. No skull fractures. IMPRESSION: Unremarkable noncontrast head CT. Please note that all CT scans at this facility use dose modulation, iterative reconstruction, and/or weight-based dosing when appropriate to reduce radiation dose to as low as reasonably achievable. Dictated by Ryan Boyce MD @ 01/06/2021 8:07:[address] Ryan Boyce @ Jan 06 2021 8:07AM
[2021-01-06 08:32] VITALS: BP 128/84; PULSE 74
== END 2021-01-06 08:30 | disposition home or self-care (01) ==
LOC: MW.ED 06:02
DX: G51.0 Bell's palsy (principal); F17.290 Nicotine dependence, other tobacco product, uncomplicated; Z20.822 Contact with and (suspected) exposure to COVID-19
CPT/HCPCS: 36415; 70450; 80053; 83735; 85025; 87635; 99284; A9270; U0002